=== PATIENT | female | born 1940 | race Two or more races ===

== ENCOUNTER → 2016-10-12 | Outpatient (CLI) | payer OTHER, MEDICAID | LOC: FIMAGING 11:59 | PROVIDERS: ATTEND Internal Medicine | DX: Z12.31 Encounter for screening mammogram for malignant neoplasm of breast (principal) | CPT/HCPCS: G0202 ==

== ENCOUNTER → 2016-12-12 | Outpatient (CLI) | payer OTHER, MEDICAID | LOC: BMCIMAGING 18:09 | PROVIDERS: ATTEND Emergency Medicine | DX: M17.11 Unilateral primary osteoarthritis, right knee (principal) ==

== ENCOUNTER → 2017-08-12 | Outpatient (CLI) | payer OTHER, MEDICAID | LOC: BMCIMAGING 11:52 | PROVIDERS: ATTEND Internal Medicine | DX: J42 Unspecified chronic bronchitis (principal); I51.7 Cardiomegaly ==